=== PATIENT | male | born 1950 | race African-American/Black ===

== ENCOUNTER 2016-06-25 12:28 | Emergency (ER) | payer BC ==
[~2016-06-25] VITALS: Ht 182.9 cm; Wt 89.2 kg
[~2016-06-25 12:28] MED LIST: APRESOLINE10 MG PO; ASPIRIN E.C.81 M1 PO; Antivert PO; CRESTOR20 MG; CRESTOR40 MG PO; HYDRALAZINE HCL10 MG PO; LISINOPRIL-HCT1 EAC3 PO; PRINZIDE 20-121 EACH PO; Pradaxa PO; ZINC30 M1 PO
[2016-06-25 16:30] LABS: ADD MIUA? NO; BILIRUBIN NEGATIVE; BLOOD NEGATIVE; COLOR YELLOW ((YELLOW)); GLUCOSE (STRIP) NEGATIVE; KETONES NEGATIVE; LEUKOCYTES NEGATIVE; NITRITE NEGATIVE; PROTEIN (STRIP) NEGATIVE; SPECIFIC GRAVITY 1.014 (1.000-1.030); UROBILINOGEN 0.2 MG/DL (0.2-1.0)
[2016-06-25] MEDS ORDERED: ZANTAC150 MG PO (17:18)
[2016-06-25] MEDS ORDERED: PREDNISONE20 MG PO (17:18)
[2016-06-25] MEDS ORDERED: ATARAX,VISTARIL25 MG PO (17:18)
[2016-06-25] MEDS ORDERED: EPIPEN ADU0.3 MG/0.3 IM (17:19)
[2016-06-25 17:33] VITALS: BP 107/60
== END 2016-06-25 17:43 | disposition home or self-care (01) ==
LOC: EME 12:28 → RME 12:28
PROVIDERS: Physician Assistant
DX: L50.0 Allergic urticaria (principal); E78.5 Hyperlipidemia, unspecified; Z85.46 Personal history of malignant neoplasm of prostate; Z92.3 Personal history of irradiation
CPT/HCPCS: 81003; 99281; 99284; J7512